=== PATIENT | female | born 1995 | race Two or more races ===

== ENCOUNTER 2022-01-28 10:27 | Observation (INO) | payer MEDICAID, OTHER ==
[2022-01-28] MEDS ORDERED: TERBUTALINE SULFATE 1 MG/ML 1ML VIAL SC ONE (10:45)
[2022-01-28] MEDS ORDERED: TERBUTALINE SULFATE 1 MG/ML 1ML VIAL SC SCH (10:45)
[2022-01-28] MEDS ORDERED: LACTATED RINGER'S 1,000 ML IV ONE (10:45)
== END 2022-01-28 11:26 | disposition home or self-care (01) ==
LOC: LDRP 10:27 → UNDOADMOB 10:27 → LDRP 10:33 → UNDODISOB 11:26
PROVIDERS: ADMIT Obstetrics & Gynecology Obstetrics; ATTEND Obstetrics & Gynecology Obstetrics
DX: O26.893 Other specified pregnancy related conditions, third trimester (principal); R10.2 Pelvic and perineal pain; O34.33 Maternal care for cervical incompetence, third trimester; O23.43 Unspecified infection of urinary tract in pregnancy, third trimester; Z3A.33 33 weeks gestation of pregnancy
CPT/HCPCS: 59025; 81002; 94760; G0378